=== PATIENT | female | born 1990 | race Caucasian/White ===

== ENCOUNTER 2022-11-02 14:40 | Observation (INO) | payer MEDICAID, OTHER, SELFPAY ==
[2022-11-02] MEDS ORDERED: Morphine 4 MG/ML VIAL ONE ×2 (16:26→18:20)
[2022-11-02 19:55] LABS: #Basophils 0.1 10x3/uL (0.0-0.2); #Eosinphils 0.3 10x3/uL (0.0-0.5); #Monocytes 0.6 10x3/uL (0.0-1.1); #Neutrophils 6.4 10x3/uL (1.5-8.4); %Basophils 0.6 % (0.0-2.0); %Eosinophils 2.7 % (0.0-6.0); %Lymphocytes 20.9 % (18.0-47.0); %Monocytes 6.6 % (0.0-10.0); Hematocrit 30.2 % (34.9-44.5); Hemoglobin 10.3 g/dL (12.0-15.5); Mean Corpuscular HGB CONC 34.1 g/dL (32.0-36.0); Mean Corpuscular Hemoglobin 31.5 pg (27.0-33.0); Mean Corpuscular Volume 92.4 fl (81.6-98.3); Platelet Count 310 10x3/uL (150-450); RBC Distribution Width 12.2 % (11.5-14.5); Red Blood Cell (RBC) Count 3.27 10x6/uL (3.90-5.03); White Blood Cell (WBC) Count 9.3 10x3/uL (3.5-10.5)
[2022-11-02] MEDS ORDERED: Bupivacaine PF 0.5% 30 ML VIAL ONE (20:45)
[2022-11-02] MEDS ORDERED: PROPOFOL 20 ML ONE (21:01)
[2022-11-02] MEDS ORDERED: Ondansetron PF 4 MG/2 ML Vial ONE (21:01)
[2022-11-02] MEDS ORDERED: Lidocaine 1% PF 5 ML VIAL ONE (21:01)
[2022-11-02] MEDS ORDERED: fentaNYL 50 mcg/mL 1 mL Vial ONE ×3 (21:01→23:19)
[2022-11-02] MEDS ORDERED: Dexamethasone 4 mg/ml Vial ONE (21:01)
[2022-11-02] MEDS ORDERED: Rocuronium Bromide 10 MG/ML (10ML VIAL) ONE (21:02)
[2022-11-02] MEDS ORDERED: SUGAMMADEX SODIUM 200 MG/2 ML VIAL ONE (21:07)
[2022-11-02] MEDS ORDERED: CEFAZOLIN 1 GM VIAL ONE (21:33)
[2022-11-02] MEDS ORDERED: Water For Injection,Sterile 20 ML ONE (21:33)
[2022-11-02] MEDS ORDERED: Bupivacaine HCl 0.5%/Epinephrine 1:200,000/PF 30 ml Vial ONE (22:04)
[2022-11-02] MEDS ORDERED: Morphine 4 MG/ML VIAL SLOW IVP PRN (22:27)
[2022-11-02 23:20] LABS: #Basophils 0.1 10x3/uL (0.0-0.2); #Eosinphils 0.2 10x3/uL (0.0-0.5); #Monocytes 0.5 10x3/uL (0.0-1.1); #Neutrophils 8.6 10x3/uL (1.5-8.4); %Basophils 0.5 % (0.0-2.0); %Lymphocytes 15.4 % (18.0-47.0); %Monocytes 4.2 % (0.0-10.0); %Neutrophils 77.4 % (40.0-75.0); Hemoglobin 10.5 g/dL (12.0-15.5); Mean Corpuscular HGB CONC 33.9 g/dL (32.0-36.0); Mean Corpuscular Hemoglobin 31.4 pg (27.0-33.0); Mean Corpuscular Volume 92.8 fl (81.6-98.3); Mean Platelet Volume 9.2 fl (7.4-10.4); Platelet Count 306 10x3/uL (150-450); RBC Distribution Width 12.3 % (11.5-14.5); Red Blood Cell (RBC) Count 3.34 10x6/uL (3.90-5.03); White Blood Cell (WBC) Count 11.1 10x3/uL (3.5-10.5)
[2022-11-03] MEDS ORDERED: Non-Formulary Medication 1 EACH PO PRN (00:43)
[2022-11-03] MEDS ORDERED: Promethazine HCl 25 MG/ML VIAL IM/IV PRN (00:45)
[2022-11-03] MEDS ORDERED: Sodium Chloride 0.9% 1,000 ML IV SCH (00:45)
[2022-11-03] MEDS ORDERED: Ondansetron HCl/PF 4 MG/2 ML Vial IVP PRN (00:45)
[2022-11-03] MEDS: HYDROcodone/Acetaminophen 5/325 mg Tablet PO PRN ×3 (01:21→09:36)
[2022-11-03 03:17] LABS: Hematocrit 29.6 % (34.9-44.5); Hemoglobin 10.2 g/dL (12.0-15.5); Mean Corpuscular HGB CONC 34.5 g/dL (32.0-36.0); Mean Corpuscular Hemoglobin 31.9 pg (27.0-33.0); Mean Corpuscular Volume 92.5 fl (81.6-98.3); Mean Platelet Volume 9.5 fl (7.4-10.4); Platelet Count 315 10x3/uL (150-450); RBC Distribution Width 12.1 % (11.5-14.5); White Blood Cell (WBC) Count 9.3 10x3/uL (3.5-10.5)
[2022-11-03 07:45] VITALS: BP 107/59; TEMP 98.7
== END 2022-11-03 10:12 | disposition home or self-care (01) ==
LOC: CSHERS 14:40 → CSHPED 11-03 00:06
PROVIDERS: ADMIT Obstetrics & Gynecology; ATTEND Obstetrics & Gynecology
PROC: 10T24ZZ Resection of Products of Conception, Ectopic, Percutaneous Endoscopic Approach (ICD-10-PCS; principal; 2022-11-03)
DX: O00.90 Unspecified ectopic pregnancy without intrauterine pregnancy (principal); O46.91 Antepartum hemorrhage, unspecified, first trimester; O73.1 Retained portions of placenta and membranes, without hemorrhage; O99.611 Diseases of the digestive system complicating pregnancy, first trimester; K66.1 Hemoperitoneum; O99.341 Other mental disorders complicating pregnancy, first trimester; F90.9 Attention-deficit hyperactivity disorder, unspecified type; O99.331 Smoking (tobacco) complicating pregnancy, first trimester; F17.210 Nicotine dependence, cigarettes, uncomplicated; Z79.899 Other long term (current) drug therapy; Z3A.00 Weeks of gestation of pregnancy not specified
CPT/HCPCS: 36415; 76856; 84702; 85027; 86850; 86900; 86901; 88305; 93005; 96374; 96376; C1889; J0690; J1100; J2270; J2405; J2704; J3010; J7050; S0020